=== PATIENT | male | born 2000 ===

== ENCOUNTER 2024-05-20 19:27 | Emergency (ER) | payer OTHER ==
[~2024-05-20] VITALS: Ht 274.3 cm; Wt 75.0 kg
[2024-05-20 21:26] VITALS: TEMP 98.5
[2024-05-20 21:39] LABS: COVID AG,FIA SOURCE NASAL SWAB
[2024-05-20 22:16] LABS: SARS-COV2 (COVID) ANTIGEN,FIA Negative (Negative)
[2024-05-20 22:19] LABS: INFLUENZA TYPE A NEGATIVE FOR TYPE A (NEGATIVE); INFLUENZA TYPE B NEGATIVE FOR TYPE B (NEGATIVE)
[2024-05-20] MEDS ORDERED: ONDA-104 PO (22:57)
[2024-05-20] MEDS ORDERED: BENZ-227 PO (23:03)
[2024-05-20 23:06] VITALS: BP 127/68; PULSE 75; RESP 18; O2SAT 97
== END 2024-05-20 23:14 | disposition home or self-care (01) ==
LOC: EMS 19:27
DX: B34.9 Viral infection, unspecified (principal); F12.90 Cannabis use, unspecified, uncomplicated; Z20.822 Contact with and (suspected) exposure to COVID-19
CPT/HCPCS: 87804; 99283